=== PATIENT | female | born 1950 | race Asian ===

== ENCOUNTER 2024-09-23 11:08 | Emergency (ER) | payer MEDICARE, OTHER ==
[~2024-09-23] VITALS: Ht 149.9 cm; Wt 79.5 kg
[2024-09-23 11:22] VITALS: BP 117/72; PULSE 108; RESP 18; TEMP 98.6; O2SAT 98
[2024-09-23] MEDS ORDERED: DAPA5TAB PO (11:25)
[2024-09-23] MEDS ORDERED: METF-1211 PO (11:25)
[2024-09-23] MEDS ORDERED: ROSU10TA72 PO (11:25)
[2024-09-23] MEDS ORDERED: VALS80TA2 PO (11:25)
[2024-09-23 11:41] LABS: COVID AG,FIA SOURCE NASAL SWAB
[2024-09-23 12:10] LABS: SARS-COV2 (COVID) ANTIGEN,FIA Negative (Negative)
[2024-09-23 12:11] LABS: INFLUENZA TYPE A NEGATIVE FOR TYPE A (NEGATIVE); INFLUENZA TYPE B NEGATIVE FOR TYPE B (NEGATIVE)
== END 2024-09-23 13:33 | disposition home or self-care (01) ==
LOC: EMS 11:08
DX: J06.9 Acute upper respiratory infection, unspecified (principal); E11.9 Type 2 diabetes mellitus without complications; E78.00 Pure hypercholesterolemia, unspecified; I10 Essential (primary) hypertension; Z79.84 Long term (current) use of oral hypoglycemic drugs; Z79.899 Other long term (current) drug therapy; Z20.822 Contact with and (suspected) exposure to COVID-19
CPT/HCPCS: 71045; 87804; 99283